=== PATIENT | male | born 1995 | race Caucasian/White ===

== ENCOUNTER 2016-10-30 07:49 | Emergency (ER) | payer OTHER ==
[~2016-10-30] VITALS: Ht 172.7 cm; Wt 64.5 kg
[~2016-10-30 07:49] MED LIST: BACI500O8 TOP; CIPR-249 PO; PERCOCET PO; triamcinolone TOP
[2016-10-30] MEDS ORDERED: traMADol 50 MG TAB PO ONE (08:30)
[2016-10-30 09:32] VITALS: BP 133/71
[2016-10-30] MEDS ORDERED: ULTR50TA8 PO (09:32)
[2016-10-30] MEDS ORDERED: CLEO300C2 PO (09:32)
--- NOTE | 2016-10-30 10:50 | REP ---
RIGHT FOOT SERIES, FOUR VIEWS: There is no evidence of an acute fracture, dislocation or intrinsic bone disease. There is no evidence of osseous destruction or periosteal reaction. IMPRESSION: No fracture or dislocation. There is no evidence of osseous destruction or periosteal reaction. Signed by Kranthi Reddy MD 10/30/2016 07:25 P
== END 2016-10-30 09:47 | disposition home or self-care (01) ==
LOC: M ED 07:49
DX: L03.031 Cellulitis of right toe (principal)